=== PATIENT | male | born 1960 | race Caucasian/White ===

== ENCOUNTER 2020-06-04 08:00 | Outpatient (CLI) | payer BC, OTHER ==
[2020-06-04 18:11] LABS: BASOPHILS # (AUTO) 0.1 10^3/uL (0.0-0.1); BASOPHILS % (AUTO) 0.9 %; EOSINOPHILS # (AUTO) 0.1 10^3/uL (0.0-0.7); EOSINOPHILS % (AUTO) 2.2 %; HGB - HEMOGLOBIN 14.4 g/dL (14.0-18.0); LYMPHOCYTES # (AUTO) 1.7 10^3/uL (1.5-3.5); LYMPHOCYTES % (AUTO) 27.2 %; MEAN CORPUSCULAR HEMOGLOBIN 29.5 pg (27.0-31.0); MEAN CORPUSCULAR HGB CONC 32.4 g/dL (32.0-36.0); MEAN PLATELET VOLUME 11.1 fL (7.4-11.4); MONOCYTES # (AUTO) 0.8 10^3/uL (0.0-1.0); NEUTROPHILS # (AUTO) 3.7 10^3/uL (1.5-6.6); NEUTROPHILS % (AUTO) 57.1 %; PLT - PLATELET COUNT 257 10^3/uL (130-450); RED BLOOD COUNT 4.88 10^6/uL (4.70-6.10); RED CELL DISTRIBUTION WIDTH 13.1 % (12.0-15.0); WHITE BLOOD COUNT 6.4 x10^3/uL (4.8-10.8)
[2020-06-04 19:12] LABS: ALBUMIN 4.2 g/dL (3.2-5.5); ALBUMIN/GLOBULIN RATIO 1.1 (1.0-2.2); ALKALINE PHOSPHATASE 46 IU/L (42-121); ALT ALANINE AMINOTRANSFERASE 34 IU/L (10-60); AST ASPARTATE AMINOTRANSFERASE 23 IU/L (10-42); BILIRUBIN,TOTAL 0.7 mg/dL (0.2-1.0); BUN - BLOOD UREA NITROGEN 24 mg/dL (6-20); CALCIUM 9.6 mg/dL (8.5-10.3); CARBON DIOXIDE - CO2 28 mmol/L (21-32); CHLORIDE 104 mmol/L (101-111); CHOL/HDL RATIO 5.8 (<5.0); CHOLESTEROL 311 mg/dL; CREATININE 1.1 mg/dL (0.6-1.2); GLUCOSE 83 mg/dL (70-100); HDL CHOLESTEROL 54 mg/dL; LDL CHOLESTEROL,CALCULATED 213 mg/dL; LDL/HDL RATIO 3.9 (<3.6); SODIUM 138 mmol/L (135-145); TOTAL PROTEIN 7.9 g/dL (6.7-8.2); VLDL CHOLESTEROL 44 mg/dL
== END 2020-06-04 23:59 | disposition home or self-care (01) ==
LOC: LAB.WCP 08:00
PROVIDERS: ATTEND Family Medicine
DX: Z00.00 Encounter for general adult medical examination without abnormal findings (principal); Z12.5 Encounter for screening for malignant neoplasm of prostate
CPT/HCPCS: 36415; 80053; 80061; 83721; 84153; 84443; 85025

== ENCOUNTER 2020-11-27 11:00 | Day surgery (SDC) | payer OTHER ==
[2020-11-27] MEDS ORDERED: LACTATED RINGERS 1,000 ML IV ONE ×2 (11:11→13:56)
[2020-11-27] MEDS ORDERED: MIDAZOLAM 2 MG/2 ML VIAL ONE ×2 (13:23→13:40)
[2020-11-27] MEDS ORDERED: fentaNYL 250 MCG/5 ML VIAL ONE (13:23)
--- NOTE | 2020-11-27 14:15 | PROVIDER PROGRESS NOTE ---
Subjective - Prog Note Date Prog Note Date: 11/27/20 Prog Note Time: 14:14 - Subjective Pt reports feeling: Improved Subjective: Patient had light sedation for colonoscopy. He is awake and alert and without discomfort. He desires to be transported home by er and has arranged this. Objective - Vital Signs/Intake & Output Vital Signs: Vital Signs x48h Temp Pulse Resp BP Pulse Ox 11/27/20 13:55 36.5 C 66 14 137/83 H 94 11/27/20 11:21 36 C L 72 18 159/111 H 97
[2020-11-27 14:42] VITALS: BP 132/60
== END 2020-11-27 11:01 | disposition home or self-care (01) ==
LOC: SDS 11:00
PROVIDERS: ATTEND Surgery
PROC: 0DBH8ZZ Excision of Cecum, Via Natural or Artificial Opening Endoscopic (ICD-10-PCS; principal; 2020-11-27 12:30)
DX: Z12.11 Encounter for screening for malignant neoplasm of colon (principal); K63.5 Polyp of colon; K64.8 Other hemorrhoids; K64.4 Residual hemorrhoidal skin tags; Z80.0 Family history of malignant neoplasm of digestive organs; I10 Essential (primary) hypertension; E78.5 Hyperlipidemia, unspecified; Z79.899 Other long term (current) drug therapy; Z87.891 Personal history of nicotine dependence
CPT/HCPCS: 45380; J3010; J7120

== ENCOUNTER 2023-05-09 09:52 | Outpatient (CLI) | payer OTHER ==
--- NOTE | 2023-05-10 12:23 | CT Report ---
PROCEDURE: SINUS SCREENING WO INDICATIONS: SINUSITIS TECHNIQUE: Noncontrast 3.0 mm axial images acquired from the frontal sinuses to the mid-sella, with coronal and sagittal reformats. For radiation dose reduction, the following was used: automated exposure control , adjustment of mA and/or kV according to patient size. COMPARISON: None. FINDINGS: Image quality: Excellent. Maxillary Sinuses: No bony remodeling or destruction. Sinuses are clear. Ethmoid Air Cells: No bony remodeling or destruction. A subcentimeter right mucous retention cyst i s present within the ethmoid air cells. Sinuses are otherwise clear. Sphenoid Sinuses: No bony remodeling or destruction. Sinuses are clear. Frontal Sinuses: No bony remodeling or destruction. Sinuses are clear. Ostiomeatal Complexes: Ostiomeatal complexes are patent. No Jerardo cells. Miscellaneous: Visualized intra-orbital contents are normal. No chiqui bullosa. No nasal septal d eviation. The left mastoid air cells are partially fluid-filled. IMPRESSION: 1. No findings to suggest acute or chronic sinusitis. 2. Left mastoid air cells are partially fluid-filled. Reviewed by: Angela Carmona MD on 05/10/2023 12:21 PM PST Approved by: Angela Carmona MD on 05/10/2023 12:21 PM PST Station ID: [id number]
== END 2023-05-09 09:53 | disposition home or self-care (01) ==
LOC: DI 09:52
PROVIDERS: ATTEND Physician Assistant
DX: J32.9 Chronic sinusitis, unspecified (principal)